=== PATIENT | male | born 2000 | race Caucasian/White ===

== ENCOUNTER 2024-06-14 21:36 | Emergency (ER) | payer MEDICAID ==
[~2024-06-14] VITALS: Ht 177.8 cm; Wt 124.0 kg
[2024-06-14 21:41] VITALS: O2SAT 98
[2024-06-14 21:42] VITALS: BP 143/98; PULSE 123; RESP 18; TEMP 37.2; O2SAT 97
[2024-06-14] MEDS: HYDROXYZINE 25MG TABLET PO ONE (22:27)
[2024-06-14 22:31] LABS: BASOPHILS % 0.4 % (0.0-2.0); EOSINOPHILS % 3.6 % (0.0-5.0); HEMATOCRIT. 44.2 % (42.0-52.0); HEMOGLOBIN. 14.9 g/dL (14.0-18.0); LYMPHOCYTES % 24.4 % (20.0-50.0); MEAN CORPUSCULAR HEMOGLOBIN 30.1 pg (28.0-32.0); MEAN CORPUSCULAR HGB CONC 33.7 g/dL (31.0-37.0); MEAN CORPUSCULAR VOLUME 89.3 fL (80.0-94.0); MEAN PLATELET VOLUME 9.1 fl (7.4-10.4); MONOCYTES % 7.2 % (2.0-8.0); NEUTROPHILS % 64.4 % (40.0-76.0); PLATELET 213 x1000/uL (130-400); RED BLOOD CELL COUNT 4.95 mill/uL (4.7-6.1); RED CELL DISTRIBUTION WIDTH 12.4 % (11.6-14.6); WHITE BLOOD COUNT 7.2 x1000/uL (4.5-11.0)
[2024-06-14 22:43] LABS: CHLORIDE 102 mEq/L (98-107); POTASSIUM 4.2 mEq/L (3.5-5.1); SODIUM 138 mEq/L (136-145)
[2024-06-14 22:44] LABS: CARBON DIOXIDE 28 mEq/L (21-32)
[2024-06-14 22:45] LABS: CALCIUM 9.9 mg/dL (8.7-10.4)
[2024-06-14 22:49] LABS: CREATININE 0.9 mg/dL (0.6-1.3); GLUCOSE 124 mg/dL (70-105); UREA NITROGEN BLOOD 13 mg/dL (9-23)
[2024-06-14 22:50] LABS: TROPONIN I HIGH SENSITIVITY 4 ng/L (3.0-53)
[2024-06-15] MEDS ORDERED: HYDR-459 MT (00:54)
== END 2024-06-15 01:04 | disposition home or self-care (01) ==
LOC: ER 21:36
DX: R07.89 Other chest pain (principal)
CPT/HCPCS: 36415; 71045; 80048; 84484; 85025; 85379; 93005; 99285